=== PATIENT | male | born 2000 | race Hispanic/Latino ===

== ENCOUNTER 2022-06-02 19:25 | Emergency (ER) | payer OTHER, SELFPAY ==
[2022-06-02 19:26] VITALS: BP 105/74; PULSE 93; RESP 18; TEMP 36.8; O2SAT 98; BMI 22.8
--- NOTE | 2022-06-02 22:05 | EDS_ITS ---
HPI <Dr. Pavan Mix MD - Last Filed: 06/03/22 04:27> History of Present Illness Chief Complaint: Laceration Informant: patient Narrative Narrative: Patient presents about 2 and half hours after laceration to his right dominant hand long finger distal tuft. This was cut on the edge of a piece of metal. Bleeding is stopped. No numbness. No loss of function. Last tetanus was somewhere between 5 and 8 years ago. Of note, he does not want another tetanus shot. PFSH <Dr. Pavan Mix MD - Last Filed: 06/03/22 04:27> FOR[facility]LY [facility], [facility]–1983 Home Medications NK 06/02/22 [History Last Taken Unknown] Allergy/AdvReac Type Severity Reaction Status Date / Time No Known Allergies Allergy Verified 06/02/22 19:26 Social History Smoking Status: Never smoker ROS <Dr. Pavan Mix MD - Last Filed: 06/03/22 04:27> ROS ED Gastrointestinal Gastrointestinal: Denies nausea or vomiting Integumentary Reports other Details: Laceration Neurologic Neurologic: Denies paresthesias or weakness Endocrine Endocrinology: Denies polydipsia or polyuria Hematologic/Lymphatic Hematologic/Lymphatic: Denies easy bleeding or easy bruising EXAM <Dr. Pavan Mix MD - Last Filed: 06/03/22 04:27> Physical Exam Const Vital Signs: 06/02/22 19:26 Temperature 98.2 F Temperature Source Temporal Pulse Rate 93 Respiratory Rate 18 Blood Pressure 105/74 Blood Pressure Mean 84 Pulse Ox 98 Oxygen Delivery Method Room Air Positive well nourished and well developed General Appearance ED: well developed and NAD HEENT normocephalic and atraumatic Resp normal respiratory effort Extremity Extremity Narrative: Patient has a 3cm flap type laceration to the distal volar tuft of his right long finger. No active bleeding. Superficial and deep tendon function is int act. Extension is intact. Neuro oriented x3 and no sensory deficits noted MDM <Dr. Pavan Mix MD - Last Filed: 06/03/22 04:27> [facility] MDM Narrative Medical decision making narrative: My plan was to anesthetize the finger scrub and suture. Patient states he does not want sutures. He is deathly afraid of needles. We discussed putting topical LET on the wound. He does not like the idea of having sutures. He wants this glued. I explained that glue on hands is not as effective. The combination of range of motion use grabbing things, and the oils of the hand make the glue not last long. We would have to glue this and he would have to maintain Steri-Strips firmly across the room wound for a good 10 days. He wants to go with this option. He understands that the outcome is not generally as good. Patient has changed his mind and will accept suturing at this time. We discussed putting let on the wound to try to get some anesthesia. I do not think this will cause necrosis of the fingertip in a young healthy male. We will do a digital block if he will allow that. <Dr. Derick Crawford MD - Last Filed: 06/03/22 00:08> Lacerations Right long fingertip laceration: Length: 3 cm Depth: Skin Shape: Flap Prep: Shure-Clens Laceration repair: Digital block, Lidocaine and Skin sutures Number of Sutures/Mari: 4 Suture Information: Ethilon, Simple and 5-0 Comment: Right long finger laceration. Flap. Discussed with patient did a digital block. Cleaned using Shur-Clens copiously irrigated. Explored. Closed using 4, 5-0 Ethilon simple erupted sutures. Proper hemostasis wound closure is obtained. Patient tolerated procedure well. He is instructed on wound care. Cleaned and dressed discharge. Discharge Plan Triage Chief Complaint: Laceration ED Provider: Pavan Mix Dx/Rx/DC Orders Clinical Impression: Laceration of right middle finger, Encounter related to worker's compensation claim Instructions: ED Laceration, Hand: All Closures Prescriptions: No Action NK Primary Care Provider: Care Physician,No Primary Referrals: [facility] [Group of Physicians] - 10 Day for suture removal NOT,DEFINED [Non-Staff] - Activity Restrictions/Additional Instructions: Keep area clean. Clean daily with soap and water. Dry thoroughly. Antibiotic ointment daily. If our dressing stays clean and dry leave it on for 4 days and then begin changing it. If it gets dirty or wet change it. Watch for any signs of infection such as redness, pus, streaks, fever or severe swelling of seen return. Stitches out in 10 days. Disposition Disposition: Home, Self Care
[2022-06-02 23:25] VITALS: RESP 18
[2022-06-02] MEDS: Lidocaine/Epi/Tetracaine 50 ML 1 APPLIC TOPICAL (23:27)
[2022-06-03] MEDS: Lidocaine 1% (20 ml mdv) 20 ML Vial INFILT (00:18)
== END 2022-06-03 00:19 | disposition home or self-care (01) ==
LOC: ED 22:26
PROVIDERS: Emergency Provider Emergency Medicine; Visit Provider Emergency Medicine
DX: S61.212A Laceration without foreign body of right middle finger without damage to nail, initial encounter (principal); W26.8XXA Contact with other sharp object(s), not elsewhere classified, initial encounter; Y99.0 Civilian activity done for income or pay
CPT/HCPCS: 12002; 99283